=== PATIENT | male | born 1970 | race Caucasian/White ===

== ENCOUNTER 2016-08-18 12:38 | Outpatient (CLI) | payer BC, OTHER | END 2016-08-18 12:39 | disposition home or self-care (01) | DX: R74.8 Abnormal levels of other serum enzymes (principal); E78.00 Pure hypercholesterolemia, unspecified ==

== ENCOUNTER 2016-10-24 08:56 | Outpatient (CLI) | payer OTHER | END 2016-10-24 08:57 | disposition home or self-care (01) | DX: G47.30 Sleep apnea, unspecified (principal); G47.8 Other sleep disorders; R06.83 Snoring; G47.10 Hypersomnia, unspecified ==

== ENCOUNTER 2016-11-10 21:30 | Outpatient (CLI) | payer OTHER | END 2016-11-10 21:31 | disposition home or self-care (01) | LOC: SC 21:30 | PROVIDERS: ATTEND Internal Medicine Pulmonary Disease | DX: G47.33 Obstructive sleep apnea (adult) (pediatric) (principal); Z68.39 Body mass index [BMI] 39.0-39.9, adult | CPT/HCPCS: 95810 ==

== ENCOUNTER 2016-12-05 14:03 | Outpatient (CLI) | payer OTHER | END 2016-12-05 14:04 | disposition home or self-care (01) | LOC: SC 14:03 | PROVIDERS: ATTEND Nurse Practitioner Family | DX: G47.33 Obstructive sleep apnea (adult) (pediatric) (principal) | CPT/HCPCS: 99212; 99214 ==

== ENCOUNTER 2017-01-22 19:02 | Outpatient (CLI) | payer OTHER | END 2017-01-22 19:03 | disposition home or self-care (01) | LOC: SC 19:02 | PROVIDERS: ATTEND Internal Medicine Pulmonary Disease | DX: G47.33 Obstructive sleep apnea (adult) (pediatric) (principal) | CPT/HCPCS: 95811 ==

== ENCOUNTER 2017-02-28 15:00 | Outpatient (CLI) | payer OTHER | END 2017-02-28 15:01 | disposition home or self-care (01) | LOC: SC 15:00 | PROVIDERS: ATTEND Internal Medicine Pulmonary Disease | DX: G47.33 Obstructive sleep apnea (adult) (pediatric) (principal) | CPT/HCPCS: 99212; 99213 ==

== ENCOUNTER 2017-04-24 16:37 | Emergency (ER) | payer OTHER ==
[2017-04-24] MEDS ORDERED: LIDOCAINE VISCOUS 2% 15 ML UDC MM STA (16:58)
[2017-04-24] MEDS ORDERED: PHENobarb/HYOSCY/ATROPINE/SCOP 5 ML SYRINGE PO STA (16:58)
[2017-04-24] MEDS ORDERED: SUCRALFATE 1 GM/10 ML UDC PO STA (16:58)
[2017-04-24] MEDS ORDERED: MAG HYDROX/AL HYDROX/SIMETH 30 ML UDC PO STA (16:58)
--- NOTE | 2017-04-24 16:58 | ED Physician Documentation ---
PD HPI ABD PAIN - Stated complaint Stated Complaint: ABD/SIDE PX - Chief complaint Chief Complaint: Abd Pain - History obtained from History obtained from: Patient, Friend - History of Present Illness Timing - onset: How many days ago (3) Timing - duration: Days (3) Timing - details: Gradual onset Pain level max: 8 Pain level now: 4 Quality: Cramping, Aching, Pain Location: RUQ, Epigastric Radiation: Other (occasionally to the R flank) Improved by: Other (nothing) Worsened by: Eating Associated symptoms: Nausea. No: Fever, Vomiting, Hematemesis, Diarrhea, Constipation, Melena, Hematochezia, Dysuria, Hematuria, Chest pain Recently seen: Clinic (seen in clinic today, US ordered for tonight, but pain worsened and came for eval.) Review of Systems Constitutional: denies: Fever, Chills Nose: denies: Rhinorrhea / runny nose, Congestion Throat: denies: Sore throat Cardiac: denies: Chest pain / pressure Respiratory: denies: Cough GI: reports: Constipation. denies: Nausea, Vomiting, Diarrhea, Hematemesis, Bloody / black stool : denies: Dysuria, Frequency, Hesitancy Skin: denies: Rash Musculoskeletal: denies: Neck pain, Back pain PD PAST MEDICAL HISTORY - Past Medical History Past Medical History: Yes Cardiovascular: Hypertension - Past Surgical History Past Surgical History: No - Present Medications Home Medications: Ambulatory Orders Medication Instructions Recorded Confirmed Albuterol Sulfate [Proair Hfa 2 puffs IH Q4HR PRN 04/24/17 04/24/17 Inhaler] Aspirin Chewable [[place] 1 tab PO DAILY 04/24/17 04/24/17 Aspirin] Beclomethasone 80 Mcg [Qvar 80] 2 puffs IH BID 04/24/17 04/24/17 Felodipine [Felodipine ER] 1 tab PO DAILY 04/24/17 04/24/17 Montelukast [Singulair] 1 tab PO DAILY 04/24/17 04/24/17 Nebivolol HCl [Bystolic] 1 tab PO DAILY 04/24/17 04/24/17 Ondansetron Odt [Zofran] 4 mg TL Q6H PRN #10 tablet 04/24/17 Oxycodone HCl/Acetaminophen 1 - 2 each PO Q6H PRN #14 tablet 04/24/17 [Percocet 5-325 mg Tablet] Ranitidine HCl [Acid Control] 1 tab PO QPM 04/24/17 04/24/17 Simvastatin [Zocor] 1 tab PO QPM 04/24/17 04/24/17 Telmisartan [Micardis] 1 tab PO DAILY 04/24/17 04/24/17 - Allergies Allergies/Adverse Reactions: Allergies Allergy/AdvReac Type Severity Reaction Status Date / Time No Known Drug Allergies Allergy Verified 04/24/17 16:44 - Social History Does the pt smoke?: No Smoking Status: Never smoker Does the pt drink ETOH?: Yes Does the pt have substance abuse?: No PD ED PE NORMAL - Vitals Vital signs reviewed: Yes - General General: Alert and oriented X 3, No acute distress, Well developed/nourished - HEENT HEENT: PERRL, Moist mucous membranes - Neck Neck: Supple, no meningeal sign - Cardiac Cardiac: RRR, Strong equal pulses - Respiratory Respiratory: No respiratory distress, Clear bilaterally - Abdomen Abdomen: Soft, Non distended, Other (TTP epigastric and RUQ. no peritoneal signs.) - Derm Derm: Warm and dry - Extremities Extremities: No deformity - Neuro Neuro: Alert and oriented X 3 - Psych Psych: Normal mood, Normal affect Results - Vitals Vitals: Vital Signs - 24 hr 04/24/17 04/24/17 04/24/17 16:42 16:56 19:10 Temperature 36.3 C L 36.4 C L Heart Rate 77 79 82 Respiratory 18 18 16 Rate Blood Pressure 143/85 H 155/95 H 156/86 H O2 Saturation 97 97 96 04/24/17 04/24/17 20:24 20:39 Temperature 36.3 C L Heart Rate 81 82 Respiratory 16 16 Rate Blood Pressure 129/78 126/72 O2 Saturation 95 97 Oxygen O2 Source Room air - Labs Labs: Laboratory Tests 04/24/17 04/24/17 04/24/17 17:23 17:23 20:30 WBC 15.9 H RBC 4.97 Hgb 15.9 Hct 46.7 MCV 94.0 MCH 32.1 H MCHC 34.2 RDW 12.7 Plt Count 281 MPV 8.1 Neut # 12.3 H Lymph # 2.1 [place] # 1.2 H Eos # 0.2 Baso # 0.1 Absolute Nucleated RBC 0.00 Nucleated RBC % 0.0 Sodium 138 Potassium 3.9 Chloride 102 Carbon Dioxide 25 Anion Gap 11.0 BUN 11 Creatinine 0.8 Estimated GFR (MDRD) 105 Glucose 94 Calcium 9.8 Total Bilirubin 1.2 H AST 27 ALT 53 Alkaline Phosphatase 98 Total Protein 8.5 H Albumin 5.2 Globulin 3.3 Albumin/Globulin Ratio 1.6 Lipase 14 L Urine Color DARK YELLOW Urine Clarity CLEAR Urine pH 6.0 Ur Specific [place] <=1.005 Urine Protein NEGATIVE Urine Glucose (UA) NEGATIVE Urine Ketones 15 H Urine Occult Blood NEGATIVE Urine Nitrite NEGATIVE Urine Bilirubin NEGATIVE Urine Urobilinogen 0.2 (NORMAL) Ur Leukocyte Esterase NEGATIVE Ur Microscopic Review NOT INDICATED Urine Culture Comments NOT INDICATED - Rads (name of study) Right upper quadrant ultrasound Radiology: Prelim report reviewed, EMP read contemporaneously, See rad report ( Fatty liver. No evidence of cholelithiasis or cholecystitis. Limited for extrahepatic bile ducts and pancreas which are poorly visualized) CT abdomen and pelvis Radiology: Prelim report reviewed, EMP read contemporaneously, See rad report ( Fatty liver. Mild nonnecrotizing pancreatitis. Colonic diverticulosis. 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 Normal appendix) PD MEDICAL DECISION MAKING - ED course Complexity details: reviewed results, re-evaluated patient, considered differential, d/w patient, d/w family ED course: Patient is a 46-year-old male who presents to the emergency department with what appears to be mild pancreatitis. No evidence of cholecystitis at this time. Pain well controlled in the emergency department will trial on pain medication for home. Normal lipase. He is well-appearing, nontoxic. Afebrile. He states he rarely drinks alcohol, a glass of wine maybe twice per week. He also denies any drug use. Possible that his simvastatin is causing the pancreatitis, therefore we will stop this. We will have him follow-up with his PCP for further evaluation and care. He will return if he worsens. Counseled to follow a mostly liquid diet for the next 24 hours and slowly advance his diet as tolerated. Patient and family counseled regarding signs and symptoms for which I believe and urgent re-evaluation would be necessary. Patient with good understanding of and agreement to plan and is comfortable going home at this time This document was made in part using voice recognition software. While efforts are made to proofread this document, sound alike and grammatical errors may occur. Departure - Departure Disposition: 01 Home, Self Care Clinical Impression: Pancreatitis Qualifiers: Chronicity: acute Pancreatitis type: unspecified pancreatitis type Acute pancreatitis complication: no infection or necrosis Qualified Code(s): K85.90 - Acute pancreatitis without necrosis or infection, unspecified Condition: Good Instructions: ED Pancreatitis Follow-Up: Marquita Gustafson PA-C [Primary Care Provider] - Prescriptions: Ondansetron Odt [Zofran] 4 mg TL Q6H PRN #10 tablet PRN Reason: Nausea / Vomiting Oxycodone HCl/Acetaminophen [Percocet 5-325 mg Tablet] 1 - 2 each PO Q6H PRN # 14 tablet PRN Reason: pain Comments: The cause of your pancreatitis is unclear, but may be related to your simvastatin. Please stop this until you see your doctor. Return if you worsen. Discharge Date/Time: 04/24/17 20:42
[2017-04-24] MEDS ORDERED: SUCRALFATE 1 GM/10 ML UDC ONE (17:30)
[2017-04-24] MEDS ORDERED: PHENobarb/HYOSCY/ATROPINE/SCOP 5 ML SYRINGE PO ONE (17:30)
[2017-04-24] MEDS ORDERED: MAG HYDROX/AL HYDROX/SIMETH 30 ML UDC ONE (17:31)
[2017-04-24] MEDS ORDERED: LIDOCAINE VISCOUS 2% 15 ML UDC MM ONE (17:31)
[2017-04-24 17:35] LABS: BASOPHILS # (AUTO) 0.1 10^3/uL (0.0-0.1); BASOPHILS % (AUTO) 0.6 %; EOSINOPHILS # (AUTO) 0.2 10^3/uL (0.0-0.7); EOSINOPHILS % (AUTO) 1.3 %; HCT - HEMATOCRIT 46.7 % (42.0-52.0); HGB - HEMOGLOBIN 15.9 g/dL (14.0-18.0); LYMPHOCYTES # (AUTO) 2.1 10^3/uL (1.5-3.5); LYMPHOCYTES % (AUTO) 12.9 %; MEAN CORPUSCULAR HEMOGLOBIN 32.1 pg (27.0-31.0); MEAN CORPUSCULAR HGB CONC 34.2 g/dL (32.0-36.0); MEAN PLATELET VOLUME 8.1 fL (7.4-11.4); MONOCYTES # (AUTO) 1.2 10^3/uL (0.0-1.0); MONOCYTES % (AUTO) 7.7 %; NEUTROPHILS # (AUTO) 12.3 10^3/uL (1.5-6.6); NEUTROPHILS % (AUTO) 77.5 %; RED BLOOD COUNT 4.97 10^6/uL (4.70-6.10); RED CELL DISTRIBUTION WIDTH 12.7 % (12.0-15.0); UNCORRECTED WHITE BLOOD COUNT 15.9 x10^3/uL; WHITE BLOOD COUNT 15.9 x10^3/uL (4.8-10.8)
[2017-04-24 17:46] LABS: ALBUMIN/GLOBULIN RATIO 1.6 (1.0-2.2); BILIRUBIN,TOTAL 1.2 mg/dL (0.2-1.0); CALCIUM 9.8 mg/dL (8.5-10.3); CREATININE 0.8 mg/dL (0.6-1.2); POTASSIUM 3.9 mmol/L (3.5-5.0); TOTAL PROTEIN 8.5 g/dL (6.7-8.2)
--- NOTE | 2017-04-24 18:28 | Ultrasound Preliminary Report ---
Exam: US ABDOMEN LIMITED IMPRESSION: 1. Fatty liver. 2. No evidence of cholelithiasis or cholecystitis. 3. Limited for extrahepatic bile ducts and pancreas which are poorly visualized. [facility] SITE ID: [id number]
--- NOTE | 2017-04-24 18:30 | Ultrasound Report ---
EXAM: ABDOMEN ULTRASOUND LIMITED, RUQ EXAM DATE: 04/24/2017 05:53 PM. CLINICAL HISTORY: RUQ abd pain. COMPARISON: None. TECHNIQUE: Real-time scanning was performed with static images obtained. FINDINGS: Liver: Diffusely hyperechoic echotexture. No discrete mass seen. 19.65 cm. Main portal vein flow: Hep atopetal. Gallbladder: Normal. No stones, wall thickening, or sonographic Elkins's sign. Biliary System: Bowel gas and body habitus related artifact obscuring the extrahepatic bile ducts. Other: No right hydronephrosis. IMPRESSION: 1. Fatty liver. 2. No evidence of cholelithiasis or cholecystitis. 3. Limited for extrahepatic bile ducts and pancreas which are poorly visualized. [facility] Referring Provider Line: [phone] SITE ID: [id number]
[2017-04-24] MEDS ORDERED: HYDROmorphone 1 MG/ML SYRINGE IVP STA (18:41)
[2017-04-24] MEDS ORDERED: SODIUM CHLORIDE 0.9% 1,000 ML IV ONE (18:45)
[2017-04-24] MEDS ORDERED: IOPAMIDOL-300 100 ML VIAL ONE (18:47)
[2017-04-24] MEDS ORDERED: HYDROmorphone 1 MG/ML SYRINGE ONE (18:55)
[2017-04-24] MEDS ORDERED: IOPAMIDOL-300 100 ML VIAL IVP ONE (19:01)
--- NOTE | 2017-04-24 19:31 | CT Preliminary Report ---
Exam: CT ABDOMEN/PELVIS W/ IMPRESSION: 1. Fatty liver. 2. Mild non-necrotizing pancreatitis. 3. Colonic diverticulosis. 4. 4 x 8 mm angiomyolipoma right kidney. 5. Normal appendix. [facility] SITE ID: [id number]
--- NOTE | 2017-04-24 19:36 | CT Report ---
EXAM: CT ABDOMEN AND PELVIS EXAM DATE: 04/24/2017 07:06 PM. CLINICAL HISTORY: Right upper quadrant pain for 3 days. No prior abdominal or pelvic surgery. COMPARISONS: Limited abdominal ultrasound earlier today at 1725. No prior CT exam.. TECHNIQUE: Routine helical CT imaging was performed through the abdomen and pelvis. IV contrast: Isov ue 300 100 mL. Enteric contrast: No. Reconstructions: Coronal and sagittal. In accordance with CT protocol optimization, one or more of the following dose reduction techniques w ere utilized for this exam: automated exposure control, adjustment of mA and/or KV based on patient s ize, or use of iterative reconstructive technique. FINDINGS: Lung Bases: Unremarkable. Liver: Fatty infiltration. Gallbladder/Bile Ducts: Unremarkable. Spleen: Normal. Pancreas: Mild uniform edema within and adjacent to the head and body of the mildly atrophic pancreas . No focal mass lesions, focal fluid collections nor pancreatic duct dilatation. Uniform enhancement of the pancreatic tissue. Adrenal Glands: Normal. Kidneys: 4 x 8 mm angiomyolipoma mid right kidney. No hydronephrosis. Peritoneal Cavity/Bowel: Diverticuli off the colon. No free fluid, free air or adenopathy. No masses or acute inflammatory process. The appendix is well visualized and normal. Pelvic Organs: Normal. The bladder and visualized pelvic organs are within normal limits. Vasculature: No aneurysms or other significant abnormality. Bones: No significant abnormality. Other: None. IMPRESSION: 1. Fatty liver. 2. Mild non-necrotizing pancreatitis. 3. Colonic diverticulosis. 4. 4 x 8 mm angiomyolipoma right kidney. 5. Normal appendix. [facility] Referring Provider Line: [phone] SITE ID: [id number]
[2017-04-24] MEDS ORDERED: oxyCOD/ACETAMIN 5 MG/325 MG TABLET PO STA (20:11)
[2017-04-24] MEDS ORDERED: oxyCOD/ACETAMIN 5 MG/325 MG TABLET PO ONE (20:28)
[2017-04-24 20:40] VITALS: BP 126/72
[2017-04-24 20:45] LABS: BILIRUBIN,URINE NEGATIVE (NEGATIVE)
[2017-04-24 20:48] LABS: UA CHARGE (STRIP ONLY) YES; UR CULTURE IF IND NOT INDICATED
== END 2017-04-24 20:42 | disposition home or self-care (01) ==
LOC: ED 16:37
DX: K85.90 Acute pancreatitis without necrosis or infection, unspecified (principal); K76.0 Fatty (change of) liver, not elsewhere classified; K57.30 Diverticulosis of large intestine without perforation or abscess without bleeding; D17.71 Benign lipomatous neoplasm of kidney; I10 Essential (primary) hypertension; Z79.82 Long term (current) use of aspirin
CPT/HCPCS: 36415; 74177; 76705; 80053; 81003; 83690; 85025; 96361; 96374; 99284; A9270; J1170; Q9967; 81001; 87086

== ENCOUNTER 2017-05-08 14:19 | Outpatient (CLI) | payer OTHER ==
[2017-05-08] MEDS ORDERED: SINCALIDE 5 MCG VIAL ONE (15:59)
--- NOTE | 2017-05-09 08:14 | Nuclear Medicine Report ---
EXAM: HEPATOBILIARY SCAN WITH CCK/KINEVAC ADMINISTRATION EXAM DATE: 05/08/2017 05:24 PM. CLINICAL HISTORY: BILIARY COLIC, ABDOMINAL PAIN, EPIGASTRIC. COMPARISON: 04/24/2017. TECHNIQUE: Following the intravenous administration of 4.8 mCi of Tc99m Mebrofenin, a hepatobiliary s can was done centered on the liver and gallbladder in multiple sequential images and projections. Following the intravenous administration of 2.64 mcg of CCK/ Kinevac over the course of approximately 60 minutes, dynamic imaging was done and the gallbladder ejection fraction was calculated. FINDINGS: Normal extraction of tracer from the blood pool indicating normal hepatocellular function. The liver size and shape is grossly within normal limits. There is activity visualized within the bilateral lungs, gallbladder, and small bowel within the firs t hour. With CCK administration, the gallbladder demonstrates an effective contraction. The gallbladder eject ion fraction is calculated to be 91%, well above the lower limit of normal of 38% for a 60-minute inj ection. The patient reported reproduction of symptoms during CCK administration. There is trace enterogastric bile reflux. IMPRESSION: 1. Patent cystic duct. 2. Patent common bile duct. 3. Negative for acute or chronic cholecystitis. 4. Positive for trace enterogastric bile reflux. 5. Normal gallbladder ejection fraction of 91%. 6. The patient reported reproduction of symptoms during CCK administration. [facility] Referring Provider Line: [phone] SITE ID: [id number]
== END 2017-05-08 14:20 | disposition home or self-care (01) ==
LOC: DI 14:19
PROVIDERS: ATTEND Physician Assistant Medical
DX: K80.20 Calculus of gallbladder without cholecystitis without obstruction (principal); R10.13 Epigastric pain; K31.89 Other diseases of stomach and duodenum
CPT/HCPCS: 78227; A9537

== ENCOUNTER 2018-06-06 08:12 | Outpatient (CLI) | payer OTHER ==
[2018-06-06 12:34] LABS: BASOPHILS # (AUTO) 0.1 10^3/uL (0.0-0.1); BASOPHILS % (AUTO) 0.9 %; EOSINOPHILS # (AUTO) 0.8 10^3/uL (0.0-0.7); EOSINOPHILS % (AUTO) 8.4 %; HGB - HEMOGLOBIN 16.4 g/dL (14.0-18.0); LYMPHOCYTES # (AUTO) 2.3 10^3/uL (1.5-3.5); LYMPHOCYTES % (AUTO) 23.6 %; MEAN CORPUSCULAR HEMOGLOBIN 32.1 pg (27.0-31.0); MEAN CORPUSCULAR HGB CONC 34.2 g/dL (32.0-36.0); MEAN CORPUSCULAR VOLUME 93.8 fL (80.0-94.0); MEAN PLATELET VOLUME 8.5 fL (7.4-11.4); MONOCYTES # (AUTO) 0.8 10^3/uL (0.0-1.0); MONOCYTES % (AUTO) 8.8 %; NEUTROPHILS # (AUTO) 5.6 10^3/uL (1.5-6.6); NEUTROPHILS % (AUTO) 58.3 %; PLT - PLATELET COUNT 291 10^3/uL (130-450); RED BLOOD COUNT 5.11 10^6/uL (4.70-6.10); RED CELL DISTRIBUTION WIDTH 12.9 % (12.0-15.0); WHITE BLOOD COUNT 9.6 x10^3/uL (4.8-10.8)
[2018-06-06 12:52] LABS: ALBUMIN 4.8 g/dL (3.2-5.5); ALBUMIN/GLOBULIN RATIO 1.7 (1.0-2.2); ALKALINE PHOSPHATASE 102 IU/L (42-121); ALT ALANINE AMINOTRANSFERASE 54 IU/L (10-60); AST ASPARTATE AMINOTRANSFERASE 28 IU/L (10-42); BILIRUBIN,TOTAL 0.8 mg/dL (0.2-1.0); BUN - BLOOD UREA NITROGEN 13 mg/dL (6-20); CALCIUM 9.4 mg/dL (8.5-10.3); CARBON DIOXIDE - CO2 28 mmol/L (21-32); CHLORIDE 102 mmol/L (101-111); CHOL/HDL RATIO 4.1 (<5.0); CHOLESTEROL 171 mg/dL; CREATININE 0.7 mg/dL (0.6-1.2); GFR - MDRD 122 (>89); GLUCOSE 98 mg/dL (70-100); HDL CHOLESTEROL 42 mg/dL; LDL CHOLESTEROL,CALCULATED 97 mg/dL; LDL/HDL RATIO 2.3 (<3.6); SODIUM 137 mmol/L (135-145); TOTAL PROTEIN 7.6 g/dL (6.7-8.2); VLDL CHOLESTEROL 32 mg/dL
== END 2018-06-06 23:59 | disposition home or self-care (01) ==
LOC: LAB.WCP 08:12
PROVIDERS: ATTEND Physician Assistant Medical
DX: Z00.00 Encounter for general adult medical examination without abnormal findings (principal); E78.00 Pure hypercholesterolemia, unspecified; Z12.5 Encounter for screening for malignant neoplasm of prostate; K21.9 Gastro-esophageal reflux disease without esophagitis
CPT/HCPCS: 36415; 80053; 80061; 83721; 84153; 84443; 85025

== ENCOUNTER 2018-08-16 14:50 | Outpatient (CLI) | payer OTHER ==
--- NOTE | 2018-08-16 15:23 | XRAY Report ---
Reason: URI Procedure Date: 08/16/2018 Accession Number: [id number] / [id number] Procedure: WCP - Chest 2 View X-Ray CPT Code: 88733 FULL RESULT: EXAM: CHEST RADIOGRAPHY EXAM DATE: 08/16/2018 03:06 PM. CLINICAL HISTORY: Upper respiratory infection. COMPARISON: CHEST 2 VIEW PA/LAT 08/02/2017 2:11 PM. TECHNIQUE: 2 views. FINDINGS: Lungs/Pleura: No focal opacities evident. No pleural effusion. No pneumothorax. Normal volumes. Mediastinum: Stable cardiomediastinal silhouette, borderline cardiomegaly. Other: None. IMPRESSION: Stable exam with no acute cardiopulmonary abnormality detected. [facility]
== END 2018-08-16 14:51 | disposition home or self-care (01) ==
LOC: DI.WCP 14:50
PROVIDERS: ATTEND Physician Assistant Medical
DX: J06.9 Acute upper respiratory infection, unspecified (principal)
CPT/HCPCS: 71046

== ENCOUNTER 2024-01-02 10:15 | Outpatient (CLI) | payer OTHER ==
--- NOTE | 2024-01-02 12:46 | XRAY Report ---
PROCEDURE: Ankle 1-2V RT INDICATIONS: ANKLE PAIN, RIGHT TECHNIQUE: 3 views of the ankle were acquired. COMPARISON: None. FINDINGS: Bones: No acute fracture or subluxation seen. Ankle mortise appears grossly intact on the limited fr ontal view that is provided. Dorsal calcaneal spur present. Soft tissues: Soft tissue swelling is seen about the ankle. IMPRESSION: No acute osseous abnormality. Reviewed by: Gary Ray MD on 01/02/2024 12:44 PM PDT Approved by: Gary Ray MD on 01/02/2024 12:44 PM PDT Station ID: [id number]
== END 2024-01-02 10:30 | disposition home or self-care (01) ==
LOC: DI.N 10:15
PROVIDERS: ATTEND Specialist
DX: M25.571 Pain in right ankle and joints of right foot (principal)